=== PATIENT | female | born 1985 | race African-American/Black ===

== ENCOUNTER 2021-07-14 07:59 | Emergency (ER) | payer BC ==
[2021-07-14 08:09] VITALS: BP 123/79; TEMP 97.8; BMI 28.5
[2021-07-14] MEDS ORDERED: KETOROLAC TROMETHAMINE 30 MG/1 ML VIAL IM ONE (08:56)
[2021-07-14 09:00] VITALS: PULSE 77
== END 2021-07-14 09:31 | disposition home or self-care (01) ==
LOC: JERFT 07:59
PROC: 3E023GC Introduction of Other Therapeutic Substance into Muscle, Percutaneous Approach (ICD-10-PCS; principal; 2021-07-14)
DX: S46.911A Strain of unspecified muscle, fascia and tendon at shoulder and upper arm level, right arm, initial encounter (principal); Y99.9 Unspecified external cause status
CPT/HCPCS: 73030-TC-RT-FY; 99284-25